=== PATIENT | male | born 1970 | race Caucasian/White ===

== ENCOUNTER 2017-08-09 10:46 | Emergency (ER) | payer OTHER ==
[2017-08-09 10:55] VITALS: BP 104/79; PULSE 90; TEMP 98.2; BMI 38.2
--- NOTE | 2017-08-09 12:29 | PDOC ---
History of Present Illness - General Chief Complaint: Injury Stated Complaint: LACERATION Time Seen by Provider: 08/09/17 11:26 History Source: Patient, Parent(s) Exam Limitations: No Limitations - History of Present Illness Initial Comments: 08/09/17 12:30 Patient was cooking today dropped a plate which broke and slid down the left lower extremity causing a 3 cm laceration to the anterior midpoint tibia Occurred: reports: just prior to arrival, this morning Severity: reports: mild, moderate Pain Location: reports: lower extremity (left leg) Associated Symptoms (Fall): denies symptoms Past History - Travel Traveled outside of the country in the last 30 days: No Close contact w/someone who was outside of country & ill: No - Past Medical History Allergies/Adverse Reactions: Allergies Allergy/AdvReac Type Severity Reaction Status Date / Time No Known Allergies Allergy Verified 08/09/17 10:49 Home Medications: Ambulatory Orders Oxycodone HCl/Acetaminophen [Percocet 5/325 -] 1 - 2 tab PO Q6H PRN #12 tab 07/28 Gabapentin [Neurontin -] 400 mg PO TID 08/09/17 COPD: No - Surgical History Abdominal Surgery: Yes (HERNIA) - Suicide/Smoking/Psychosocial Hx Smoking History: Never smoked Information on smoking cessation initiated: No Hx Alcohol Use: Yes (SOCIAL) Drug/Substance Use Hx: No Substance Use Type: None Trauma Specific PMHX - Complaint Specific PMHX Back Injury: No Neck Injury: No Review of Systems - Review of Systems Able to Perform ROS?: Yes Is the patient limited Cymraes proficient: Yes Constitutional: Yes: See HPI. No: Symptoms Reported, Malaise HEENTM: Yes: Symptoms Reported Musculoskeletal: Yes: See HPI. No: Symptoms Reported Neurological: No: Symptoms reported *Physical Exam - Vital Signs Last Vital Signs Temp Pulse Resp BP Pulse Ox 98.2 F 90 18 104/79 100 08/09/17 10:49 08/09/17 10:49 08/09/17 10:49 08/09/17 10:49 08/09/17 10:49 - Physical Exam General Appearance: Yes: Nourished, Appropriately Dressed, Apparent Distress HEENT: positive: GENEVIEVE, Normal ENT Inspection, TMs Normal, Pharynx Normal Respiratory/Chest: positive: Lungs Clear Musculoskeletal: positive: Normal Inspection Extremity: positive: Normal Capillary Refill, Normal Range of Motion, Tender. negative: Normal Inspection Integumentary: positive: Normal Color, Other (3cm laceration to midpoint ) Neurologic: positive: jacquard loom card changer II-XII NML intact, Fully Oriented, Alert, Normal Mood/ Affect, Normal Response, Motor Strength 5/5 Procedures - Laceration/Wound Repair Left Leg Wound Length: 2.6 to 5.0 cm Wound Explored: clean Wound's Depth, Shape: superficial, linear Irrigated w/ Saline: Yes Betadine Prep: Yes Anesthesia: 1% Lidocaine Wound Repaired With: Sutures Suture Size/Type: 4:0 Number of Sutures: 5 Layer Closure: No Sterile Dressing Applied: Yes Splint Applied: No *DC/Admit/Observation/Transfer Diagnosis at time of Disposition: Laceration - Discharge Dispostion Disposition: HOME Condition at time of disposition: Stable Admit: No - Referrals - Patient Instructions Printed Discharge Instructions: DI for Laceration Repair -- Simple Additional Instructions: Rest, elevate, avoid strenuous activity or heavy lifting until sutures are removed Leave dressing on for the next 24 hours, Then may remove dressing gently and wash area with soap and water. Reapply bacitracin ointment and dressing daily for the next 5 days On day #6 keep the wound protected and cover as needed until sutures are removed allowing wound to start to dry May use Tylenol or Motrin for pain relief Suture removal in : 12-14 Days September 21? Ask for Rubi - Post Discharge Activity
== END 2017-08-09 12:49 | disposition home or self-care (01) ==
LOC: JERFT 10:46
PROC: 0HQLXZZ Repair Left Lower Leg Skin, External Approach (ICD-10-PCS; principal; 2017-08-09)
DX: S81.812A Laceration without foreign body, left lower leg, initial encounter (principal); W25.XXXA Contact with sharp glass, initial encounter; Y93.G3 Activity, cooking and baking; Y92.000 Kitchen of unspecified non-institutional (private) residence as the place of occurrence of the external cause
CPT/HCPCS: 12002; 99282-25

== ENCOUNTER 2017-08-23 08:46 | Emergency (ER) | payer OTHER ==
[2017-08-23 09:01] VITALS: BP 132/73; PULSE 78; TEMP 98.8; BMI 36.3
--- NOTE | 2017-08-23 10:42 | PDOC ---
Suture Removal/Wound Check HPI - History of Present Illness Chief Complaint: Suture/Staple Removal(Here) Stated Complaint: SUTURE REMOVAL Time Seen by Provider: 08/23/17 09:21 History Source: Yes: Patient Treated at: [facility] Date of Last ED visit: 08/09/17 - Previous ED Treatment Type of procedure performed on last visit: Yes: Laceration Repair Past History - Past Medical History Allergies/Adverse Reactions: Allergies Allergy/AdvReac Type Severity Reaction Status Date / Time No Known Allergies Allergy Verified 08/23/17 08:58 Home Medications: Ambulatory Orders Oxycodone HCl/Acetaminophen [Percocet 5/325 -] 1 - 2 tab PO Q6H PRN #12 tab 07/28 Gabapentin [Neurontin -] 400 mg PO TID 08/09/17 Cephalexin [Keflex] 500 mg PO Q6H #28 capsule 08/23/17 COPD: No - Surgical History Abdominal Surgery: Yes (UmbilicaL HERNIA) - Immunization History Immunization Up to Date: Yes - Suicide/Smoking/Psychosocial Hx Smoking History: Never smoked Information on smoking cessation initiated: No Hx Alcohol Use: No Drug/Substance Use Hx: No Substance Use Type: None Suture Removal/Wound Check PE - Physical Exam Laceration/Wound Check Symptoms: reports: Pain. denies: Fever, Chills, Discharge Current Severity Level: Moderate Maximum Severity Level: Moderate Location of Laceration/Wound: left: Leg (sutures intact w/ limited erythema and tenderenss, no discharge) *Review of Systems - Review of Systems Constitutional: No: Chills, Fever Medical Decision Making - Medical Decision Making 08/23/17 10:41 47 yo M, no sig hx, for suture removal to left lower extremity. States site painful for the past 3 days but no discharge, fever or chills. has been aplying topical abx. Patient well-appearing and stable with minimal erythema limited to sutures w/ sig ttp, no e/o abscess, no crepitus or blisters. 5 sutures removed without complications w/ local wound care. Dc w/ keflex for possible infxn, wound check in 48 hrs 08/23/17 10:45 *DC/Admit/Observation/Transfer Diagnosis at time of Disposition: Visit for suture removal - Discharge Dispostion Disposition: HOME Condition at time of disposition: Good - Prescriptions Prescriptions: Cephalexin [Keflex] 500 mg PO Q6H #28 capsule - Referrals - Patient Instructions Printed Discharge Instructions: Cellulitis Additional Instructions: You were started on Keflex for possible infection to your suture site. Take medications as prescribed and return to ER in 48 hours for wound check - Post Discharge Activity
== END 2017-08-23 10:42 | disposition home or self-care (01) ==
LOC: JERFT 08:46
DX: Z48.02 Encounter for removal of sutures (principal)
CPT/HCPCS: 99281-25